=== PATIENT | female | born 1990 ===

== ENCOUNTER 2017-11-17 08:11 | Day surgery (SDC) | payer BC ==
[2017-11-17 08:39] VITALS: BMI 28.1
[2017-11-17] MEDS ORDERED: Lactated Ringer's 1,000 ML IV ONE (08:46)
[2017-11-17 08:57] VITALS: O2SAT 100
[2017-11-17] MEDS ORDERED: Propofol 10 mg/ml Inj (20 ML) ONE (10:22)
[2017-11-17 10:56] VITALS: BP 96/42; PULSE 87; RESP 14; TEMP 97
== END 2017-11-17 11:10 | disposition home or self-care (01) ==
LOC: H.ENDO 08:11
PROVIDERS: ATTEND Internal Medicine Gastroenterology
DX: K62.5 Hemorrhage of anus and rectum (principal); K64.8 Other hemorrhoids; K64.4 Residual hemorrhoidal skin tags; L29.0 Pruritus ani
CPT/HCPCS: 45378; J2704; J7120